=== PATIENT | male | born 1990 | race Caucasian/White ===

== ENCOUNTER → 2017-08-12 | Outpatient (CLI) | payer OTHER, SELFPAY | PROVIDERS: Visit Provider Internal Medicine Adolescent Medicine | DX: R42 Dizziness and giddiness (principal) | CPT/HCPCS: 36415; 80053; 85025 ==

== ENCOUNTER 2024-01-14 17:15 | Emergency (ER) | payer OTHER, SELFPAY ==
[2024-01-14 17:40] VITALS: BP 149/89; PULSE 87; RESP 20; TEMP 36.9; O2SAT 96; BMI 32.9
--- NOTE | 2024-01-14 18:45 | ED_ITS ---
Discharge Plan Disposition Patient Disposition: Home, Self-Care Condition: Good Referrals Follow up/Referrals: Provider,Referral, [Primary Care Provider] - See instructions Activity Restrictions/Add. Instructions Additional Instructions/Restrictions: Follow up with your primary care physician. GO TO THE ER FOR ANY WORSENING ISSUES Clinical Impressions Clinical Impression: Acute foreign body of right ear Instructions Patient Instructions: DI for Removal of Foreign Body From Ear Discharge ED Provider: Narinder Smith [facility] [place] HPI General Stated complaint: Q tip stuck in right ear Mode of Arrival: Ambulatory Source of Information: Patient Limitations: No Limitations Time Seen by Provider: 01/14/24 17:57 Description of Symptoms (Recalled from Triage Doc. by RN): PATIENT STATES HE WAS USING A Q-TIP IN HIS RIGHT EAR 2 DAYS AGO AND THE COTTON PART CAME OFF AND IS STUCK IN HIS RIGHT EAR HEENT Symptoms (Recalled from RN notes): Yes Resp Symptoms (Recalled from RN notes): No Skin Symptoms (Recalled from RN notes): No MS Symptoms (Recalled from RN notes): No Functional Status (Recalled from RN notes): WNL History of Present Illness Provider Complaint: He states that he has the tip of a q-tip lodged in his right ear. He states that he was cleaning his ear aggressively last night when the tip broke off. He denies ear pain, but he does state that his hearing is muffled in that ear. Related Data Allergies Allergy/AdvReac Type Severity Reaction Status Date / Time cefaclor [From [facility]] Allergy Verified 01/14/24 17:49 Worker's Comp Is this a Worker's Comp case?: No [facility] Disclaimer: The information contained in this section may have been updated after the patient was seen, as this information can be updated by other users. Medical History (Updated 01/14/24 @ 18:47 by Narinder Smith APRN) Asthma Social History Smoking Status: Never smoker alcohol intake: never current occupational status: employed Travel in the last 8 weeks: None ROS Obtained: Yes All systems reviewed & no additional complaints except as documented Constitutional Constitutional: Denies chills and Denies fever(s) Eyes Eyes: Denies eye discharge ENT Ears, Nose, Mouth, and Throat: Reports as per HPI, Denies dizziness, Denies otalgia and Denies sore throat Cardiovascular Cardiovascular: Denies chest pain Respiratory Respiratory: Denies shortness of breath, Denies chest congestion, Denies cough, Denies stridor and Denies wheezing Gastrointestinal Gastrointestingal: Denies nausea or vomiting Musculoskeletal Musculoskeletal: Reports system reviewed and no additional complaints, except as documented and Denies arthralgias Integumentary/Breasts Skin/Breast: Denies rash Neurologic Neurologic: Denies dizziness and Denies paresthesias Allergic/Immunologic Allergic/Immunologic: Denies wheezing Physical Exam General General appearance: alert and in no apparent distress Head Head exam: atraumatic, normocephalic and normal inspection Eye Eye exam: Present normal appearance, PERRL and EOMI ENT ENT exam: Present mucous membranes moist, TM's normal bilaterally and normal external ear exam Expanded ENT Exam TM/Canal exam: Right TM: foreign body (cotton tip noted in ear canal. ) Neck Neck exam: Present normal inspection, full ROM and trachea midline; Absent meningismus or lymphadenopathy Chest Chest inspection: Present normal inspection and symmetric chest wall rise; Absent tenderness Respiratory Respiratory exam: Present normal lung sounds bilaterally; Absent respiratory distress Cardiovascular Cardiovascular exam: Present regular rate and normal rhythm; Absent JVD Abdominal Exam Abdominal exam: Present soft and normal bowel sounds; Absent distention, tenderness or guarding Extremities Exam Extremities exam: Present normal inspection, full ROM and normal capillary refill; Absent calf tenderness Back Exam Back exam: Present normal inspection; Absent tenderness Neurological Exam Neurological exam: Present alert and oriented X3 Psychiatric Psychiatric exam: Present normal affect and normal mood Skin Skin exam: Present warm, dry, intact and normal color Lymphatic Lymphatic Findings: no adenopathy Medical Decision Making Medical Records Medical records reviewed: No I reviewed the patient's medical records. Kostas Inquiry Pt receiving controlled substance: No Vital Signs: 01/14/24 17:40 Temperature 98.4 F Temperature Source Oral Pulse Rate [Left Brachial] 87 Respiratory Rate 20 Blood Pressure [Left Arm] 149/89 H Blood Pressure Mean [Left Arm] 109 Blood Pressure Source [Left Arm] Automatic Cuff Blood Pressure Position [Left Arm] Sitting 02 Sat by Pulse Oximetry 96 Oxygen Delivery Method Room Air Procedures Risk/Benefits of Procedure(s) Were Explained: Yes FB Removal Ear Location: ear canal (R) Foreign Body Suspected: other (cotton q-tip tip) TM intact pre-procedure: unable to visualize Foreign Body Removed: yes Foreign Body Removal Technique: instrumentation Tympanic Membrane Intact Post Procedure: Yes Patient Tolerated Procedure: well and no complications Complications: none Additional Comments: The cotton tip was easily and completely removed using a small pair of alligator clamps. He tolerated this well. no trauma to ear canal or t.m. noted after procedure.
[2024-01-14 18:48] VITALS: BP 149/89; PULSE 87; RESP 20; TEMP 36.9; O2SAT 96
== END 2024-01-14 18:51 | disposition home or self-care (01) ==
PROVIDERS: Emergency Provider Nurse Practitioner Family
DX: T16.1XXA Foreign body in right ear, initial encounter (principal); W44.F0XA Objects of natural or organic material unspecified, entering into or through a natural orifice, initial encounter
CPT/HCPCS: 10120; 99204; 99213; G0463